=== PATIENT | male | born 1960 | race American Indian/Alaskan Native ===

== ENCOUNTER 2021-01-02 08:59 | Outpatient (CLI) | payer BC ==
[2021-01-02 09:41] LABS: INR 1.77 (0.87-1.13)
== END 2021-01-02 09:00 | disposition home or self-care (01) ==
LOC: LAB 08:59
PROVIDERS: ATTEND Internal Medicine Cardiovascular Disease
DX: Z79.01 Long term (current) use of anticoagulants (principal)
CPT/HCPCS: 36415; 85610

== ENCOUNTER 2021-03-01 08:32 | Outpatient (CLI) | payer OTHER ==
--- NOTE | 2021-03-01 10:59 | XRay Report ---
BILATERAL KNEE 2 VIEW(S) INDICATION / CLINICAL INFORMATION: BILATERAL KNEE PAIN COMPARISON: None available. FINDINGS: BONES / JOINT(S): No acute fracture or subluxation. 1 mild degenerative joint disease of the left kne e. Patient is status post cemented right total knee arthroplasty. No hardware abnormality. SOFT TISSUES: No significant abnormality. ADDITIONAL FINDINGS: None. Signer Name: Mark Sharma DO Signed: 03/01/2021 10:55 AM Workstation Name: [id number]
--- NOTE | 2021-03-01 11:15 | XRay Report ---
LUMBAR SPINE 3 VIEWS INDICATION / CLINICAL INFORMATION: BACK PAIN. COMPARISON: None available. FINDINGS: VERTEBRAE: No acute fracture. No significant malalignment. DISC SPACES / FACET JOINTS:There is mild degenerative disc disease throughout the lumbar spine, most pronounced at L4-L5. PARASPINAL SOFT TISSUES:No significant abnormality. ADDITIONAL FINDINGS: None. Signer Name: Mark Sharma DO Signed: 03/01/2021 11:11 AM Workstation Name: [id number]
--- NOTE | 2021-03-01 11:17 | XRay Report ---
BILATERAL HIP 3 VIEW(S) INDICATION / CLINICAL INFORMATION: HIP PAIN COMPARISON: None available. FINDINGS: BONES / JOINT(S): No acute fracture or subluxation. There is moderate degenerative joint disease of b ilateral hips. There is a prominent right os acetabula versus sequela of prior trauma. SOFT TISSUES: No significant abnormality. ADDITIONAL FINDINGS: None. Signer Name: Mark Sharma DO Signed: 03/01/2021 11:13 AM Workstation Name: [id number]
== END 2021-03-01 08:33 | disposition home or self-care (01) ==
LOC: XRAY 08:32
PROVIDERS: ATTEND Internal Medicine
DX: M16.0 Bilateral primary osteoarthritis of hip (principal); M51.36 Other intervertebral disc degeneration, lumbar region; M17.0 Bilateral primary osteoarthritis of knee
CPT/HCPCS: 72100; 73521